=== PATIENT | female | born 1990 | race African-American/Black ===

== ENCOUNTER 2019-03-04 09:07 | Emergency (ER) | payer BC, MEDICAID ==
[2019-03-04 09:13] VITALS: BP 146/93
--- NOTE | 2019-03-04 09:43 | RADIOLOGY REPORT (SQ) ---
EXAM DESCRIPTION: FOOT RIGHT COMPLETE COMPLETED DATE/TIME: 03/04/2019 9:34 am REASON FOR STUDY: Pain with walking; heard a pop COMPARISON: None. NUMBER OF VIEWS: Three views. TECHNIQUE: AP, lateral and oblique radiographic images acquired of the right foot. LIMITATIONS: None. FINDINGS: MINERALIZATION: Normal. BONES: There is a minimally displaced oblique fracture of the tuberosity of the right 5th metatarsal. There is a possible additional fracture of the anterior process of the calcaneus seen on oblique vi ew only. JOINTS: No effusions. SOFT TISSUES: Soft tissue swelling about the lateral right foot. OTHER: No other significant finding. IMPRESSION: There is a minimally displaced oblique fracture of the tuberosity of the right 5th metat arsal. There is a possible additional fracture of the anterior process of the calcaneus seen on obli que view only. Consider CT to further evaluate. TECHNICAL DOCUMENTATION: JOB ID: [id number]- All Rights Reserved Reading location - IP/workstation name: [email or web address]
--- NOTE | 2019-03-04 10:22 | ER Document Report ---
HPI - HPI Patient complains to provider of: Foot injury Time Seen by Provider: 03/04/19 10:13 Onset: Yesterday Onset/Duration: Sudden Quality of pain: Achy Pain Level: 3 Context: Patient states she was playing soccer last night and somehow injured her foot. Patient complains of right lateral foot pain. Patient complains of pain with ambulation. Associated Symptoms: Other - Right foot injury Exacerbated by: Standing, Walking Relieved by: Denies Similar symptoms previously: No Recently seen / treated by doctor: No - ROS ROS below otherwise negative: Yes Systems Reviewed and Negative: Yes All other systems reviewed and negative - CONSTITUTIONAL Constitutional: DENIES: Fever - GASTROINTESTINAL Gastrointestinal: DENIES: Nausea, Patient vomiting - REPRODUCTIVE Reproductive: DENIES: : - MUSCULOSKELETAL Musculoskeletal: REPORTS: Extremity pain - DERM Skin Color: Normal Skin Problems: None Past Medical History - General Information source: Patient - Social History Smoking Status: Never Smoker Frequency of alcohol use: None Drug Abuse: None Occupation: Call center Lives with: Family Family History: Reviewed & Not Pertinent - Medical History Medical History: Negative Past Surgical History: Reports: Hx Section Vertical Provider Document - CONSTITUTIONAL Agree With Documented VS: Yes Exam Limitations: No Limitations General Appearance: WD/WN, No Apparent Distress - INFECTION CONTROL TRAVEL OUTSIDE OF THE [place] IN LAST 30 DAYS: No - HEENT HEENT: Atraumatic, Normocephalic - NECK Neck: Normal Inspection - RESPIRATORY Respiratory: No Respiratory Distress - CARDIOVASCULAR Pulses: Normal: Dorsalis pedis - MUSCULOSKELETAL/EXTREMETIES Musculoskeletal/Extremeties: MAEW, Tender - Right foot tenderness to base of right fifth metatarsal with 1+ edema, patient with plantar midfoot tenderness, Edema. negative: Eccymosis - NEURO Level of Consciousness: Awake, Alert, Appropriate Motor/Sensory: No Motor Deficit - DERM Integumentary: Warm, Dry, No Rash Course - Re-evaluation Re-evalutation: 03/04/19 10:22 Offered patient pain medication, patient declines at this time. - Vital Signs Vital signs: Temp Pulse Resp BP Pulse Ox 97.9 F 85 16 146/93 H 98 03/04/19 09:11 03/04/19 09:11 03/04/19 09:11 03/04/19 09:11 03/04/19 09:11 - Diagnostic Test Radiology reviewed: Image reviewed, Reports reviewed Procedures - Immobilization Right Foot Pre-Proc Neuro Vasc Exam: Normal Immobilizer type: Posterior ankle Performed by: PCT Post-Proc Neuro Vasc Exam: Normal Alignment checked and good: Yes Discharge - Discharge Clinical Impression: Metatarsal fracture Qualifiers: Encounter type: initial encounter Metatarsal bone: fifth Fracture type: closed Fracture alignment: displaced Laterality: right Qualified Code(s): S92.351A - Displaced fracture of fifth metatarsal bone, right foot, initial encounter for closed fracture Condition: Stable Disposition: HOME, SELF-CARE Instructions: Use of Crutches ([facility]), Foot Fracture ([facility]), Ice & Elevation ([facility] ), Splint Precautions ([facility]) Additional Instructions: Return immediately for any new or worsening symptoms Followup with your primary care provider, call tomorrow to make a followup appointment Follow-up with orthopedics for further evaluation, call today for a follow-up appointment Prescriptions: Naproxen [Naprosyn 250 Nmg Tablet] 1 tab PO BID #14 tablet Forms: Return to Work Referrals: [facility] [Provider Group] - Follow up tomorrow
--- NOTE | 2019-03-04 11:14 | RADIOLOGY REPORT (SQ) ---
EXAM DESCRIPTION: CT RT LOWER EXTREMITY WITHOUT COMPLETED DATE/TIME: 03/04/2019 10:47 am REASON FOR STUDY: eval R foot calcaneus fx, MT fx COMPARISON: Same day radiographs of the right foot TECHNIQUE: Axial imaging performed through the right foot and ankle with reformatted coronal and sag ittal imaging windowed for bone and soft tissues. Images saved to PACS. 3D IMAGING: Were 3D images as MIP, SSD, or volume rendering performed at the work station? Yes. All CT scanners at this facility use dose modulation, iterative reconstruction, and/or weight based d osing when appropriate to reduce radiation dose to as low as reasonably achievable (ALARA). [facility]: Dose Right [facility]: CareDose [facility]: Dose Right [facility]: Teradose 4D [facility]: [employer] LIMITATIONS: None. RADIATION DOSE: CT Rad equipment meets quality standard of care and radiation dose reduction techniq ues were employed. CTDIvol: 4.1 mGy. DLP: 69 mGy-cm. mGy. FINDINGS: SOFT TISSUES: No obvious swelling or foreign body. BONES: There is a redemonstrated minimally displaced fracture of the tuberosity of the right 5th meta tarsal. There is a corticated fragment of the anterior process of the calcaneus, likely nonacute and possibly related to prior trauma or alternately variant ossification (series 2, image 23, series 300 , image 20). MINERALIZATION: Normal. OTHER: No other significant finding. IMPRESSION: 1. There is a redemonstrated minimally displaced fracture of the tuberosity of the right 5th metatarsal. 2. There is a corticated fragment of the anterior process of the calcaneus, likely nonacute and possibly related to prior trauma or alternately variant ossification. TECHNICAL DOCUMENTATION: JOB ID: [id number] Quality ID # [id number]: Final reports with documentation of one or more dose reduction techniques (e.g., Au tomated exposure control, adjustment of the mA and/or kV according to patient size, use of iterative reconstruction technique) 2010 [employer]- All Rights Reserved Reading location - IP/workstation name: [email or web address]
== END 2019-03-04 11:31 | disposition home or self-care (01) ==
LOC: ER 09:07
DX: S92.351A Displaced fracture of fifth metatarsal bone, right foot, initial encounter for closed fracture (principal); X58.XXXA Exposure to other specified factors, initial encounter
CPT/HCPCS: 99284

== ENCOUNTER 2019-12-09 14:43 | Outpatient (CLI) | payer BC ==
[2019-12-09 15:32] LABS: APPEARANCE,URINE SLIGHTLY-CLOUDY; BILIRUBIN,URINE NEGATIVE (NEGATIVE); GLUCOSE, URINE NEGATIVE (NEGATIVE); KETONES,URINE 80 mg/dL (NEGATIVE); LEUKOCYTE ESTERASE,URINE NEGATIVE (NEGATIVE); NITRITE,URINE NEGATIVE (NEGATIVE); PROTEIN,URINE 100 mg/dL (NEGATIVE); URINE SPECIFIC GRAVITY 1.029
[2019-12-09 15:36] LABS: COLOR,URINE YELLOW
[2019-12-09 15:42] LABS: URINE AMPHETAMINES SCREEN NEGATIVE; URINE BARBITURATES SCREEN NEGATIVE; URINE BENZODIAZEPINES SCREEN NEGATIVE; URINE COCAINE SCREEN NEGATIVE; URINE MARIJUANA (THC) SCREEN NEGATIVE; URINE METHADONE SCREEN NEGATIVE; URINE PHENCYCLIDINE SCREEN NEGATIVE
[2019-12-09] MEDS ORDERED: BETAMET ACET/BETAMET NA INJ 6 MG/1 ML IM SCH (15:45)
[2019-12-09] MEDS ORDERED: AZITHROMYCIN 250 MG TABLET PO ONE (15:49)
[2019-12-09] MEDS ORDERED: AZITHROMYCIN 250 MG TABLET ONE (15:53)
[2019-12-09] MEDS ORDERED: BETAMET ACET/BETAMET NA INJ 6 MG/1 ML ONE (15:56)
[2019-12-09] MEDS ORDERED: AMPICILLIN SOD INJ 2 GM VIAL ONE (15:56)
--- NOTE | 2019-12-09 16:24 | PDOC TRANSFER SUMMARY ---
General Admission Date/PCP: ZEYAD MARES MD Admission Date: 12/09/19 Transfer Date: 12/09/19 Accepting Facility: [facility] Accepting Physician: Santos Carrizales Resuscitation Status: Full Code - Transfer Diagnosis (1) premature rupture of membranes Is this a current diagnosis for this admission?: Yes Diagnosis Summary: She was sent from the office for ruptured membranes at 31 wks not in labor. Pediatrics requests transfer for care. She has been given the first dose of steroids, azithromycin and pcn. [facility] accepts transfer. - Transfer Medications Home Medications: Pnv95/Iron Fum/Folic Acid [ Caplet] 1 tab PO DAILY 01/22/16 Glyburide [Diabeta 2.5 mg Tablet] 1 tab PO QHS 12/09/19 Transfer Medications: Current Medications Azithromycin (Zithromax 250 Mg Tablet) 1,000 mg PO NOW ONE Stop: 12/09/19 15:50 Betamethasone Acet/Betameth SodPhos ([place] Inj 6 Mg/1 Ml) 12 mg IM DAILY [place] Stop: 12/10/19 15:44 Ampicillin Sodium 2 gm/ Sodium (Chloride) 100 mls @ 200 mls/hr IV Q6H [place] Stop: 12/16/19 15:59 - Allergies Allergies/Adverse Reactions: No Known Allergies Allergy (Verified 12/09/19 15:00) Hospital Course Hospital Course: She was seen briefly on Labor and delivery to confirm SROM. Physical Exam Vital Signs: Intake & Output 12/08/19 12/09/19 12/10/19 06:59 06:59 06:59 Weight 106.8 kg Results Laboratory Results: 12/09/19 15:05 Urine Color YELLOW Urine Appearance SLIGHTLY-CLOUDY Urine pH 6.0 Ur Specific [place] 1.029 Urine Protein 100 H Urine Glucose (UA) NEGATIVE Urine Ketones 80 H Urine Blood NEGATIVE Urine Nitrite NEGATIVE Ur Leukocyte Esterase NEGATIVE Urine WBC (Auto) 2 Urine RBC (Auto) 2 Impressions: Plan transfer for PPROM at 31 wks. Plan Discharge Plan: As stated above. Time Spent: Greater than 30 Minutes
[2019-12-09 17:55] LABS: CHLAM PCR NOT DETECTED (NOT DETECT)
[2019-12-09] MEDS ORDERED: AMPICILLIN SODIUM 2 GM in NORMAL SALINE 100 ML IV SCH (21:00)
== END 2019-12-09 18:45 | disposition short-term general hospital (02) ==
LOC: LC 14:43
PROVIDERS: ATTEND Obstetrics & Gynecology
PROC: 4A1HXCZ Monitoring of Products of Conception, Cardiac Rate, External Approach (ICD-10-PCS; principal; 2019-12-09)
DX: O42.913 Preterm premature rupture of membranes, unspecified as to length of time between rupture and onset of labor, third trimester (principal); Z3A.31 31 weeks gestation of pregnancy
CPT/HCPCS: 59899; 81001; 87081; 80307; 87491; 87591; 84112; J0290; J0702; 96372